=== PATIENT | male | born 1965 | race Caucasian/White ===

== ENCOUNTER 2017-04-27 08:45 | Emergency (ER) | payer OTHER ==
[~2017-04-27] VITALS: Ht 180.3 cm; Wt 102.1 kg
[2017-04-27] MEDS ORDERED: BLOOD PRESSURE PILL (09:31)
== END 2017-04-27 09:36 | disposition home or self-care (01) ==
LOC: ED 08:45
DX: Z00.8 Encounter for other general examination (principal)

== ENCOUNTER 2017-09-08 09:53 | Emergency (ER) | payer OTHER ==
[~2017-09-08] VITALS: Ht 180.3 cm; Wt 102.1 kg
[~2017-09-08 09:53] MED LIST: BLOOD PRESSURE PILL
== END 2017-09-08 10:22 | disposition home or self-care (01) ==
LOC: ED 09:53
DX: M25.571 Pain in right ankle and joints of right foot (principal); X50.1XXA Overexertion from prolonged static or awkward postures, initial encounter; Y92.89 Other specified places as the place of occurrence of the external cause